=== PATIENT | female | born 2000 | race Caucasian/White ===

== ENCOUNTER 2022-05-09 13:49 | Emergency (ER) | payer OTHER, SELFPAY ==
[2022-05-09] VITALS (8 sets, daily range): BP systolic 128–166; BP diastolic 81–106; PULSE 83–113; RESP 16–26; O2SAT 99–100
--- NOTE | ~2022-05-09 | XR_ITS ---
EXAMINATION: XR chest 2V 05/09/2022 14:25 INDICATION: Chest pain PROCEDURE: 2 view chest COMPARISON: No prior studies for comparison. FINDINGS: The lungs are clear. The cardiomediastinal silhouette is within normal limits. There are no pleural effusions. There is no pneumothorax suspected. IMPRESSION: 1: NO ACUTE CARDIOPULMONARY DISEASE. Reviewed, dictated and finalized at location A.
--- NOTE | 2022-05-09 13:53 | ECG_ITS ---
Measurements Intervals [place] Rate: 118 P: 61 [place]: 153 QRS: 10 QRSD: 86 T: 22 QT: 340 QTc: 477 Interpretive Statements SINUS TACHYCARDIA POSSIBLE LEFT ATRIAL ENLARGEMENT INCOMPLETE RIGHT BUNDLE BRANCH BLOCK CONSIDER INFERIOR INFARCT, AGE INDETERMINATE BORDERLINE ST-T WAVE ABNORMALITY- ANTEROLATERAL LEADS BASELINE ARTIFACT- I, III, AVR, AVL, AVF ABNORMAL ECG Electronically Signed On 05-09-2022 14:24:50 CDT by Joe Strong D.O.
[2022-05-09 14:13] LABS: Basophils Percent Auto 0.4 % (0.2-1.2); Eosinophils Absolute Auto 0.1 K/mm3 (0-0.3); Eosinophils Percent Auto 1.3 % (0-4.4); Hematocrit 40.9 % (37.0-47.0); Immature Granulocyte Absolute 0.01 K/mm3 (0.00-0.031); Immature Granulocyte Percent A 0.1 % (0-0.5); Lymphocytes Absolute Auto 3.35 K/mm3 (0.9-3.2); Lymphocytes Percent Auto 37.6 % (18.3-44.2); Mean Corpuscular HGB Conc 31.8 g/dl (32-36); Mean Corpuscular Volume 88.1 fl (80-100); Mean Platelet Volume 9.4 fl (7.4-10.4); Monocytes Absolute Auto 0.4 K/mm3 (0.1-0.6); Monocytes Percent Auto 4.9 % (2.6-8.5); Neutrophils Percent Auto 55.7 % (45.5-73.1); Platelet Count Result 374 k/mm3 (150-375); Red Blood Count 4.64 M/mm3 (4.2-5.4); Red Cell Distribution Width 11.9 % (11.5-14.5); White Blood Count 8.9 K/mm3 (4.5-10.0)
[2022-05-09 14:24] LABS: INR 1.1; Partial Thromboplastin Time 26.8 SECONDS (22.3-36.8); Prothrombin Time 13.5 Seconds (11.1-14.7)
--- NOTE | 2022-05-09 14:24 | ED.GENADULT ---
HPI - General Adult General Chief complaint: Chest Pain Stated complaint: Chest Pain/Shaky Hands/Neck Pain Time Seen by Provider: 05/09/22 13:52 Source: patient Mode of arrival: ambulatory Limitations: no limitations History of Present Illness HPI narrative: Patient is a 22-year-old female who presents to the ED with report of chest pain. Patient reports having intermittent pain, described as a midsternal chest heaviness for the past 1 month. The pain has been occurring more frequently over the last few days and became worse today, which prompted her presentation to the ED. She has not tried anything for her pain. She notes she is scheduled to have an ovarian cystectomy done on Monday by Dr. Enriquez. She called him today and was referred to the ED for further evaluation. Patient also reports having occasional shortness of breath with exertion, but denies any pleuritic pain with inspiration, fever, chills, nausea, vomiting, worsening abdominal pain, urinary symptoms, pain or swelling in legs, cough, cold symptoms. Patient was started on ANIRUDH control 2 months ago after her IUD was removed. Related Data Home Medications Medication Instructions Recorded Confirmed norethindrone 1 mg-ethinyl 1 tablet PO HS 05/05/22 05/05/22 estradiol 20 mcg (24)-iron 75 mg (4) tablet () Allergies Allergy/AdvReac Type Severity Reaction Status Date / Time No Known Allergies Allergy Unverified 05/09/22 14:02 Review of Systems Review of Systems: CONSTITUTIONAL: Denies fever, chills, or sweats. ENT: Denies rhinorrhea, congestion, sore throat. CARDIOVASCULAR: See HPI RESPIRATORY: See HPI GASTROINTESTINAL: Denies abdominal pain, nausea, vomiting, or diarrhea. GENITOURINARY: Denies dysuria or hematuria. MUSCULOSKELETAL: Denies back pain, joint pain, or myalgia. NEUROLOGIC: Denies headache, numbness, or weakness. All systems reviewed & are unremarkable except as noted in HPI and below PMFSH Past Medical History Medical History No pertinent past medical history Ovarian cyst Surgical History Surgical History (Updated 05/09/22 @ 15:47 by Janis Yadav PA-C) No pertinent past surgical history Social History Social History (Reviewed 05/09/22 @ 15:47 by FEDERICO Segal Smoking status: Never smoker Alcohol intake: never Substance use: never Substance use type: does not use Spiritual care concerns: No Exam Narrative: GENERAL: Well appearing, well-nourished, non-toxic, in no acute distress. HEAD: Normocephalic, atraumatic. NECK: Supple. No adenopathy, no masses. RESPIRATORY: Airway patent, respirations nonlabored. Clear to auscultation bilaterally, no rales, rhonchi, wheezing. CARDIOVASCULAR: Borderline tachycardic with regular rhythm without murmurs, rubs, or gallops. Peripheral pulses 2+ and equal bilaterally. ABDOMINAL: Soft, nontender, nondistended, no hepatosplenomegaly. Normoactive BS. MUSCULOSKELETAL: Moves all extremities. Strength/ROM intact without gross deformities. No edema or unilateral swelling. No calf tenderness. No redness or warmth to lower extremities bilaterally. No chest wall tenderness to palpation. SKIN: Warm, dry, normal color. No rashes. NEURO: A&O X3. Speech clear. Cranial nerves II-XII grossly intact. Steady gait. No ataxic movements. PSYCHIATRIC: Appropriate mood and affect. Normal interaction. Course Vital Signs Vital signs: Vital Signs Pulse Rate 113 H 05/09/22 13:54 Respiratory Rate 26 H 05/09/22 13:54 Blood Pressure 166/81 H 05/09/22 13:54 Pulse Oximetry 100 05/09/22 13:54 Oxygen Delivery Room Air 05/09/22 13:54 Pulse Rate 93 05/09/22 18:05 Respiratory Rate 20 05/09/22 18:05 Blood Pressure 138/92 H 05/09/22 18:05 Pulse Oximetry 99 05/09/22 18:05 Oxygen Delivery Room Air 05/09/22 14:05 Medical Decision Making MDM Narrative Medical decision making narrative: Patient pr
[2022-05-09 14:26] LABS: Alanine Aminotransferase 15 U/L (6-35); Albumin Level 4.9 g/dL (3.5-5.1); Alkaline Phosphatase 54 U/L (38-126); Anion Gap 12 mmol/L (8-16); Aspartate Amino Transferase 24 U/L (14-36); Bilirubin,Total 0.5 mg/dL (0.2-1.3); Blood Urea Nitrogen 9 mg/dL (7-17); Carbon Dioxide 26 mmol/L (22-30); Chloride 101 mmol/L (98-107); Estimated CRCL calculation 109 ml/min; Estimated Glomerular Filt Rate > 60; Glucose 84 mg/dL (65-110); Lipase 81 U/L (23-300); Potassium 3.9 mmol/L (3.4-5.0); Sodium 139 mmol/L (137-145)
[2022-05-09 14:38] LABS: Troponin I < 0.012 ng/mL (0.000-0.034)
[2022-05-09 15:38] LABS: D Dimer 0.28 ug/mL (<0.48)
[2022-05-09 16:10] LABS: Appearance Urine Clear (Clear); Bilirubin Urine Negative (Negative); Blood Urine 1+ (Negative); Color Urine Yellow (Yellow); Glucose Urine UA Negative (Negative); Ketones Urine Negative (Negative); Leukocyte Esterase Ur Negative LEU/UL (Negative); Nitrate Urine Negative (Negative); Protein Urine Negative (Negative); Specific Grav Ur 1.015 (1.001-1.035); Urobilinogen Urine 0.2 mg/dL (<2.0)
[2022-05-09 16:14] LABS: Mucus Urine Rare /lpf; Squamous Epithelial Cell Urine Few /hpf (Few); WBC Urine 0-3 /hpf
[2022-05-09 16:28] LABS: Add Urine Microscopic? YES
[2022-05-09 17:31] LABS: Troponin I < 0.012 ng/mL (0.000-0.034)
== END 2022-05-09 18:07 | disposition home or self-care (01) ==
PROVIDERS: Physician Assistant; Emergency Provider Emergency Medicine
DX: R07.89 Other chest pain (principal); R00.0 Tachycardia, unspecified; R94.31 Abnormal electrocardiogram [ECG] [EKG]; I45.10 Unspecified right bundle-branch block
CPT/HCPCS: 36415; 71046; 80053; 81001; 81025; 83690; 84484; 85025; 85380; 85610; 85730; 93005; 99284

== ENCOUNTER 2022-05-11 01:35 | Day surgery (SDC) | payer OTHER, SELFPAY ==
[2022-05-05 10:15] VITALS: BMI 34.9
--- NOTE | 2022-05-05 10:20 | PC.NURSE ---
Report to the Outpatient Waiting Room, entrance under the green pavilion located off [facility], at time 0800 on date 05/11/22. OR Time: 1000. - You and your visitor will be asked a series of questions to screen for COVID 19 for your protection. - Only one visitor is allowed at this time. - The patient visitor is requested to leave or wait in car when not with patient. - A mask is required within the hospital. Patients may have clear liquids (water, carbonated beverages, clear teas, apple juice) until 3 hours prior to surgery with a maximum of 20 ounces. - No food from midnight until time of surgery Take the following medications with a SIP of water the morning of surgery: NONE Medications to discontinue per physician: N/A Date to take last dose: N/A Please no make-up, nail israeli, hairspray, perfume, deodorant, or body powder the day of surgery. No jewelry (including any body piercings) or valuables the day of surgery, leave them at home. Please take a shower or bath the night before, or the morning of, surgery with an antibacterial soap. Wear comfortable, loose fitting clothing. - Jewelry must be removed prior to entering the operating room. Rings and piercings that are not removed may be cut off. - The hospital will not accept responsibility for valuables. - Please leave all valuables, including medications, at home the day of surgery. If you are going home after surgery, a licensed dedicated intermodal truck driver must drive you home. - NO public transportation without another adult. - We recommend that an adult stay with you for 24 hours following discharge. - We also recommend that you do not drive, make important decision, drink alcoholic beverages, or take any drugs that were not prescribed by your health care provider for at least 24 hours after your discharge time. Follow any additional instructions given to you from your surgeon. If you or anyone in your household have experienced Covid symptoms in the past week, please notify your surgeon or the nurse liaison at the phone number below for possible testing. Telephone instructions given to PT - THELMA SNYDER and asked if any additional questions and then verbalized understanding. Patient advised to call surgeon office or pre surgery nurse liaison [phone] if any additional questions.
[2022-05-11] VITALS (8 sets, daily range): BP systolic 95–144; BP diastolic 39–86; PULSE 67–106; RESP 14–20; TEMP 36.2–36.8; O2SAT 99–100
--- NOTE | 2022-05-11 07:21 | WPDHPUPDATE1 ---
History and Physical Update Update Date/Time: 05/11/22 07:21 History and Physical has been reviewed, including an updated exam of the patient. There are NO changes in the patient's condition. Risks, benefits, and alternatives have been discussed and questions answered. Patient agrees to proceed with procedure.
--- NOTE | 2022-05-11 08:42 | WPDANESEPPF ---
Anes - Initial Pre Proc Eval Procedure: Operation Date: 05/11/22 10:00 Proposed Procedures p Laparoscopic Right Ovarian Cystectomy - Grisel Enriquez MD Date/Time: 05/11/22 08:42 Surgeon: Grisel Enriquez MD Pre Op Diagnosis: right ovary cyst Patient Data Age: 22 Gender: F Height: 1.55 m Weight: 83.91 kg Allergies Allergy/AdvReac Type Severity Reaction Status Date / Time No Known Allergies Allergy Unverified 05/09/22 14:02 Home Medications Medication Instructions Recorded Confirmed Type norethindrone 1 mg-ethinyl 1 tablet PO HS 05/05/22 05/05/22 History estradiol 20 mcg (24)-iron 75 mg (4) tablet () Patient hx anesthesia problems: none Family hx anesthesia problems: none Results Review: All pre-operative results and documents have been reviewed as part of the pre-operative evaluation. [facility] Past Medical History Medical History (Updated 05/11/22 @ 08:46 by Nba Little MD) Asthma No pertinent past medical history Obesity Ovarian cyst Surgical History Surgical History (Updated 05/11/22 @ 08:47 by Nba Little MD) H/O wisdom tooth extraction Social History Social History Smoking status: Never smoker Alcohol intake: never Substance use: never Substance use type: does not use Living arrangements: with family Spiritual care concerns: No Anes - Eval Final PreProcedure Day of Procedure 05/11/22 08:42 Patient weight: obese Heart: regular rate and rhythm Lungs: clear to auscultation Airway: Mallampati scale class II Neurological: alert and oriented Last oral intake: >/= 8 hours ASA classification: II Emergent: no Anesthetic plan: proceed Anesthesia type and monitoring: general ETT and standard monitoring Results Review: All pre-operative results and documents have been reviewed as part of the pre-operative evaluation. Informed Consent: The patient's anesthetic plan and its attendant risks and benefits were discussed with the patient/family/POA. Questions were solicited and answers provided to the satisfaction of the patient/family/POA.
[2022-05-11] MEDS: SCOPOLAMINE 1.5 MG PATCH TRANSDERM (08:49)
[2022-05-11] MEDS: ACETAMINOPHEN 500 MG TABLET 1000 MG PO (08:50)
[2022-05-11] MEDS: LACTATED RINGERS 1,000 ML 30 ML IV CONT ×2 (08:55→11:37)
[2022-05-11] MEDS: KETOROLAC 15 MG/ML VIAL (*BKC) IV PUSH (08:57)
--- NOTE | 2022-05-11 10:59 | W.PM.PROC2 ---
Procedure Note - Detailed Date of Procedure 05/11/22 Pre-op Diagnosis right ovary cyst, pelvic pain Post-op Diagnosis Same (Possible endometriosis) Procedure Performed Diagnostic laparoscopy Surgeon Grisel Enriquez MD Anesthesia General Indications Pelvic pain Findings Colon was distended and full. Posterior cul-de-sac lesion, vesicular. Multiple right ovarian cysts. Largest cyst was transected in drained. Sample of the capsule was taken Description of Procedure The patient was taken to the operating room. She was prepped and draped in the dorsal lithotomy position after induction general anesthesia. A 5 mm incision was made with a scalpel on the abdominal skin in the left upper quadrant of the abdomen. A 5 mm trocar was inserted into the intra-abdominal cavity under direct visualization the scope. In the same fashion a 5 mm left lower quadrant trocar was inserted and a 5 mm infraumbilical trocar was inserted. Right ovarian cyst was transected in drained, cyst capsule was sampled. Endometrial lesion the posterior cul-de-sac was resected peers on the anterior portion of the posterior cul-de-sac favoring the uterine side. This area was resected with using scissors, cautery, traction,. The pelvis was irrigated. The pneumoperitoneum was reduced. The trocars were removed. Skin was closed with subcuticular 4 micro. The patient's incisions were covered with Dermabond. She was taken recovery room in stable condition. Sponge lap and needle counts were correct x2. Estimated Blood Loss 25 Complications No immediate complications Condition Stable Disposition Same day
== END 2022-05-11 13:05 | disposition home or self-care (01) ==
PROVIDERS: Visit Provider Obstetrics & Gynecology
PROC: (CPT 49320; principal; 2022-05-11 10:00)
DX: N83.201 Unspecified ovarian cyst, right side (principal); N80.3 Endometriosis of pelvic peritoneum; R10.2 Pelvic and perineal pain; E66.9 Obesity, unspecified; Z68.37 Body mass index [BMI] 37.0-37.9, adult
CPT/HCPCS: 58662; 88305; A9270; J1100; J1170; J1885; J2250; J2405; J2704; J2710; J3010; J7120